=== PATIENT | male | born 1965 | race Caucasian/White ===

== ENCOUNTER 2024-03-22 01:01 | Outpatient (CLI) | payer MEDICARE, MEDICAID, SELFPAY ==
--- NOTE | 2024-03-22 09:20 | DI.MRI_ITS ---
Exam(s) MR THORACIC SPINE WO EXAM: MR THORACIC SPINE WO CLINICAL HISTORY: 1 year history of upper back pain,thoracic spondylosis,m47.814 TECHNIQUE: Multiplanar multisequence MRI of the thoracic spine was performed without intravenous con trast. COMPARISON: RF XR T SPINE AP/LAT/SWIMMERS from 02/10/2024 FINDINGS: OSSEOUS: There are no acute appearing thoracic vertebral fractures. No significant kyphosis. Slight anterior wedging of the T1 and T2 vertebral bodies noted with small superior endplate Schmorl's node invaginations evident at these levels but no acute osseous edema within these vertebral bodies. The re are benign appearing hemangiomas noted in a few vertebral bodies, the largest of these in the lowe r half of the L1 vertebral body and measuring 1.5 x 1.0 by 1.2 cm. In addition, there is another non expansile bone lesion evident in the posterior aspect of T3 vertebral body which does not exhibit sig nal characteristics of a typical benign hemangioma, being hypo intense on T1, bright on T2, and brigh t on STIR sequences. This measures 7 x 5 mm. Given its non expansile/spoke wheel appearance on the axial images I suspect this is an atypical small non expansile hemangioma. There is also mild Schmorl's node invagination at superior endplate of T11 vertebral body. Mild scoliosis convex right in the mid thoracic spine noted THORACIC SPINAL CORD: There is no abnormal signal in the thoracic spinal cord and no evidence of foca l cord atrophy nor focal cord swelling. There is no evidence of syringomyelia nor significant spinal cord dysraphism. There is no evidence of mass at the conus medullaris. The position of the conus me dullaris is at T12-L1 level. SIGNIFICANT INDIVIDUAL LEVEL FINDINGS: There is a small disc protrusion at the T6-7 level which appears left paracentral on the axial images and indents the thecal sac but without true indentation of the spinal cord at this level. There is also no abnormal signal within the cord at this level. No other disc protrusions evident. PARASPINAL TISSUES: No significant masses nor fluid collections evident. IMPRESSION: 1. There is a small solitary disc protrusion at T6-7 level as described above. There is no significa nt central spinal canal stenosis nor foraminal stenosis at this level. No abnormal spinal cord signa l at this level. 2. Small non expansile bone lesion noted in the left side of T3 vertebral body measuring 7 x 5 mm. S uspect this is an atypical small hemangioma. There are other more typical appearing hemangiomas note d, the largest being in the L1 vertebral body measuring 15 x 10 x 12 mm. 3. No significant abnormalities of the thoracic spinal cord. DATA REPOSITORY:
== END 2024-03-22 01:21 ==
PROVIDERS: PCP Internal Medicine; Visit Provider Anesthesiology Pain Medicine
DX: M47.814 Spondylosis without myelopathy or radiculopathy, thoracic region (principal)
CPT/HCPCS: 72146